=== PATIENT | male | born 1970 | race Caucasian/White ===

== ENCOUNTER 2022-05-25 18:03 | Emergency (ER) | payer OTHER, SELFPAY ==
--- OUTSIDE RECORDS SUMMARY | 2022-05-25 18:06 | XMS REPORT | Continuity of Care Document ---
:1970 Author Organization [facility] t Address [address] [place] [address] Care Team Providers Name Role Phone Unavailable Unavailable Unavailable Payers Payer Name Policy Type Policy Number Effective Date Expiration Date S richard COVID VACCINE [id number] 2020-10-20 00:00:00 ADMIN / TESTING Problems This patient has no known problems. Allergies, Adverse Reactions, Alerts This patient has no known allergies or adverse reactions. Social History Social Habit Start Date Stop Date Quantity Comments Source Sex Assigned At [address] [facility] 00:00:00 00:00:00 [facility] Medications This patient has no known medications. Immunizations Ordered Immunization Filled Immunization Date Status Commen ts Source Name Name Covid-19 Vaccine 2020-11-[address] [facility] MRNA (PF) 12yr+ 00:00:00 Medical C enter (Pfizer/BioNTech)(IM M601) Covid-19 Vaccine 2020-10-[address] [facility] MRNA (PF) 12yr+ 00:00:00 Medical C enter (Pfizer/BioNTech)(IM M601) Procedures This patient has no known procedures. Plan of Care Planned Activity Planned Date Details Comments Source Future Scheduled 2022-05-10 INFLUENZA VACCINE (#1) [facility] 00:00:00 [code = INFLUENZA Medical Ce nter VACCINE (#1)] Future Scheduled 2021-09-[address] [facility] 00:00:00 (12+) [code = [facility] DEPRESSION SCREENING (12+)] Future Scheduled 2021-04-12 COVID-19 VACCINE (3 - [facility] 00:[facility]:00 Booster for Pfizer Medical C enter series) [code = COVID-19 VACCINE (3 - Booster for Pfizer series)] Future Scheduled 2020 SHINGLES VACCINES ([address] [facility] 00:00:00 2) [code = SHINGLES Medical Center VACCINES (1 of 2)] Future Scheduled 2005 Lipid panel (procedure) [facility] 00:00:00 [code = 52171977] Medical Ce nter Future Scheduled 1989 DTAP/TDAP/TD VACCINES [facility] 00:00:00 (1 - Tdap) [code = Medical C enter DTAP/TDAP/TD VACCINES (1 - Tdap)] Future Scheduled 1988 HEPATITIS C SCREENING [facility] 00:00:00 [code = HEPATITIS C Medical Center SCREENING] Future Scheduled 1970 CT Colonography (combo) [facility] 00:00:00 [code = CT Colonography [facility] (combo)] Future Scheduled 1970 Screening for malignant [facility] 00:00:00 neoplasm of colon Medical Ce nter (procedure) [code = 634936586] Future Scheduled 1970 Screening for malignant [facility] 00:00:00 neoplasm of colon Medical Ce [facility]ter (procedure) [code = 619600934] Future Scheduled 1970 Screening for malignant [facility] 00:00:00 neoplasm of colon Medical Ce [facility]ter (procedure) [code = [id number]] Future Scheduled 1970 Screening for malignant [facility] 00:00:00 neoplasm of colon Medical Ce nter (procedure) [code = 440257852] Future Scheduled 1970 Sigmoidoscopy [code = [facility] 00:[facility] Sigmoidoscopy] Medical Cente r Encounters Start End Encounter Admission Attending Care Care Encounter Source Date/Time Date/Time Type Type Clinicians Facility Department ID 2020-11-10 2020-11-10 Outpatient [facility] [id number] 00:00:00 00:00:00 2020-11-09 2020-11-09 Outpatient [facility] [id number] [id number] 00:00:00 00:00:00 2020-10-20 2020-10-20 Outpatient [facility] [id number] [address] [place] [address] 00:00:00 00:00:00 Results This patient has no known results.
--- NOTE | 2022-05-25 19:16 | RAD REPORT ---
EXAM DESCRIPTION: RAD - Foot Right 3 View - 05/25/2022 7:02 pm CLINICAL HISTORY: puncture wound COMPARISON: No comparisons FINDINGS/IMPRESSION: No acute fracture. No malalignment. No significant focal degenerative changes. Swelling along the dorsum of the foot. No radiopaque foreign body.
[2022-05-25] MEDS ORDERED: IBUPROFEN 400 MG TAB ONE (19:53)
[2022-05-25] MEDS ORDERED: HYDROCODONE/APAP 10/325 TAB ONE (19:53)
[2022-05-25] MEDS ORDERED: DOXYCYCLINE 100 MG CAP PO ONE (19:54)
--- NOTE | 2022-05-25 19:56 | ER ---
Nurse's Notes [facility] Name: Mark Streeter Age: 52 yrs Sex: Male : 1970 Arrival Date: 05/25/2022 Time: 18:07 Bed 24 Private MD: Diagnosis: Puncture wound without foreign body, right foot Presentation: 05/25 18:10 Chief complaint: Patient [place] and he had a catfish poke him kr3 in the top of the right foot. Coronavirus screen: Vaccine status: Patient reports receiving the 2nd dose of the covid vaccine. Client denies travel out of the [place] in the last 14 days. Ebola Screen: Patient denies travel to an Ebola-affected area in the 21 days before illness onset. Initial Sepsis Screen: Does the patient meet any 2 criteria? No. Patient's initial sepsis screen is negative. Does the patient have a suspected source of infection? Yes: Skin breakdown/wound. Risk Assessment: Do you want to hurt yourself or someone else? Patient reports no desire to harm self or others. Onset of symptoms was May 25, 2022. 18:10 Method Of Arrival: Ambulatory kr3 18:10 Acuity: LEOBARDO 4 kr3 Triage Assessment: 18:15 General: Appears in no apparent distress. uncomfortable, Behavior is calm, cooperative, kr3 appropriate for age. Pain: Complains of pain in dorsum of right foot. Musculoskeletal: wound on top of foot. Injury Description: Puncture sustained to dorsum of right foot. Historical: - Allergies: 18:14 No Known Allergies; kr3 - PMHx: 18:14 Hypertensive disorder; kr3 - Social history:: Smoking status: Patient denies any tobacco usage or history of. Screenin:50 Abuse screen: Denies threats or abuse. Denies injuries from another. Nutritional tw5 screening: No deficits noted. Tuberculosis screening: No symptoms or risk factors identified. Fall Risk None identified. Assessment: 19:50 General: Appears in no apparent distress. Behavior is calm, cooperative, appropriate tw5 for age. Neuro: Level of Consciousness is awake, alert, obeys commands, Oriented to person, place, time, situation. Respiratory: Airway is patent Trachea midline Respiratory effort is even, unlabored. Derm: puncture wound on top of foot. Musculoskeletal: Range of motion: intact in all extremities. Vital Signs: 18:10 BP 131 / 81; Pulse 99; Resp 18; Temp 98.5; Pulse Ox 99% on R/A; Weight 108.86 kg; kr3 Height 6 ft. 2 in. (187.96 cm); Pain 4/10; 18:10 Body Mass Index 30.81 (108.86 kg, 187.96 cm) kr3 ED Course: 18:07 Patient arrived in ED. mr 18:14 Triage completed. kr3 18:16 Arm band placed on right wrist. kr3 18:21 Nima Meléndez PA is PHCP. cp 18:21 Walter Cleary MD is Attending Physician. cp 19:04 XRAY Foot RIGHT 3 View In Process Unspecified. EDSC 19:23 Anita Navas is Primary Nurse. tw5 19:50 Patient has correct armband on for positive identification. tw5 19:50 No provider procedures requiring assistance completed. Patient did not have IV access tw5 during this emergency room visit. 19:55 Awaiting lab results. tw5 19:55 Wound care: to puncture located on dorsum of left foot was cleaned with soap and water, tw5 dressed with Neosporin, 4X4s. Administered Medications: 19:50 Drug: Ibuprofen 800 mg Route: PO; tw5 19:56 Follow up: Response: No adverse reaction tw5 19:50 Drug: Doxycycline 200 mg Route: PO; tw5 19:56 Follow up: Response: No adverse reaction tw5 19:50 Drug: Clindamycin 300 mg Route: PO; tw5 19:56 Follow up: Response: No adverse reaction tw5 19:51 Not Given (Patient Refused; patient has to drive homee): HYDROcodone-acetaminophen 10 tw5 mg-325 mg 1 tabs PO once Medication: 19:50 VIS not applicable for this client. tw5 Outcome: 19:56 Discharge ordered by MD. cp 20:04 Discharged to home ambulatory. tw5 20:04 Condition: improved 20:04 Discharge instructions given to patient, family, Instructed on discharge instructions, follow up and referral plans. medication usage, Demonstrated understanding of instructions, follow-up care, medications, Prescriptions given X 3. 20:04 Patient left the ED. tw5 Signatures: Dispatcher [employer] [facility] Matthew Hayley mr Page, NimaREINA mckenna cp, Tiffany tw5 Racquel Bhatia, RN RN kr3
--- NOTE | 2022-05-25 19:56 | EDPHYS ---
Physician Documentation [facility] Name: Mark Streeter Age: 52 yrs Sex: Male : 1970 Arrival Date: 05/25/2022 Time: 18:07 Bed 24 Private MD: ED Physician Walter Cleary HPI: 05/25 18:45 This 52 yrs old Male presents to ER via Ambulatory with complaints of Foot Injury. cp 18:45 The patient presents with an injury, pain, that is acute, a penetrating injury, forrest of cp catfish. The complaints affect the dorsum of right foot. Context: The problem was sustained outdoors, while fishing, the patient can fully bear weight. Onset: The symptoms/episode began/occurred just prior to arrival. Associated signs and symptoms: The patient has no apparent associated signs or symptoms. Historical: - Allergies: 18:14 No Known Allergies; kr3 - PMHx: 18:14 Hypertensive disorder; kr3 - Social history:: Smoking status: Patient denies any tobacco usage or history of. ROS: 18:50 Constitutional: Negative for body aches, chills, fever, poor PO intake. cp 18:50 MS/extremity: Positive for pain, puncture, of the dorsum of right foot. cp 18:50 Respiratory: Negative for cough, shortness of breath, wheezing. cp 18:50 Eyes: Negative for injury, pain, redness, and discharge. cp 18:50 Neck: Negative for pain with movement, pain at rest. 18:50 Cardiovascular: Negative for chest pain, edema, palpitations. 18:50 Back: Negative for pain at rest, pain with movement. 18:50 All other systems are negative. Exam: 18:55 Constitutional: The patient appears in no acute distress, alert, awake, non-toxic, well cp developed, well nourished, uncomfortable. 18:55 Head/Face: Normocephalic, atraumatic. cp 18:55 Chest/axilla: Inspection: normal. cp 18:55 Cardiovascular: Rate: normal, Rhythm: regular. 18:55 Respiratory: the patient does not display signs of respiratory distress, Respirations: normal, no use of accessory muscles, no retractions, labored breathing, is not present. 18:55 Musculoskeletal/extremity: Extremities: grossly normal except: noted in the dorsum of right foot: mild swelling noted with mild erythema and tenderness to palpation. superficial puncture wound noted mid right foot with no active bleeding, ROM: full active range of motion, in the right foot, the right foot Sensation intact. Tendon exam: specific tendon testing normal through active and passive range of motion 18:55 Neuro: Orientation: to person, place \T\ time. Mentation: is normal. cp Vital Signs: 18:10 BP 131 / 81; Pulse 99; Resp 18; Temp 98.5; Pulse Ox 99% on R/A; Weight 108.86 kg; kr3 Height 6 ft. 2 in. (187.96 cm); Pain 4/10; 18:10 Body Mass Index 30.81 (108.86 kg, 187.96 cm) kr3 MDM: 19:16 Patient medically screened. cp 19:30 Differential diagnosis: open fracture, puncture wound, retained foreign body. cp 19:55 Data reviewed: vital signs, nurses notes, radiologic studies, plain films. cp 19:55 Test interpretation: by ED physician or midlevel provider: plain radiologic studies. cp Counseling: I had a detailed discussion with the patient and/or guardian regarding: the historical points, exam findings, and any diagnostic results supporting the discharge/admit diagnosis, radiology results, the need for outpatient follow up, a family practitioner, to return to the emergency department if symptoms worsen or persist or if there are any questions or concerns that arise at home. Response to treatment: the patient's symptoms have mildly improved after treatment. Special discussion: I discussed in detail with the patient the higher chance of wound infection based on his presenting history. ED course: VSS. Wound cleaned and irrigated. Wound dressed. Oral antibiotics given in ED. Will discharge to home for continued monitoring. Patient instructed on wound care and to closely monitor for worsening redness and swelling. 05/25 18:31 Order name: XRAY Foot RIGHT 3 View; Complete Time: 19:23 cp 05/25 19:40 Order name: Wound Care; Complete Time: 19:55 cp Administered Medications: 19:50 Drug: Ibuprofen 800 mg Route: PO; tw5 19:56 Follow up: Response: No adverse reaction tw5 19:50 Drug: Doxycycline 200 mg Route: PO; tw5 19:56 Follow up: Response: No adverse reaction tw5 19:50 Drug: Clindamycin 300 mg Route: PO; tw5 19:56 Follow up: Response: No adverse reaction tw5 19:51 Not Given (Patient Refused; patient has to drive homee): HYDROcodone-acetaminophen 10 tw5 mg-325 mg 1 tabs PO once Disposition Summary: 05/25/22 19:56 Discharge Ordered Location: Home cp Problem: new cp Symptoms: have improved cp Condition: Stable cp Diagnosis - Puncture wound without foreign body, right foot cp Followup: cp - With: Private Physician - When: 1 - 2 days - Reason: Wound Recheck Discharge Instructions: - Discharge Summary Sheet cp - Puncture Wound cp Forms: - Medication Reconciliation Form cp - Thank You Letter cp - Antibiotic Education cp - Prescription Opioid Use cp Prescriptions: - Clindamycin HCl 300 mg Oral Capsule - take 1 capsule by ORAL route every 6 hours for 10 days; 40 capsule; Refills: 0, cp Product Selection Permitted - Doxycycline Hyclate 100 mg Oral Tablet - take 1 tablet by ORAL route every 12 hours; 20 tablet; Refills: 0, Product cp Selection Permitted - Diclofenac Sodium 75 mg Oral Tablet Sustained Release - take 1 tablet by ORAL route 2 times per day; 30 tablet; Refills: 0, Product cp Selection Permitted Signatures: Dispatcher [employer] EDMS Nima Meléndez PA PA cp Wood, Tiffany tw5 Racquel Bhatia RN RN kr3
[2022-05-27 03:36] VITALS: BP 131/81; TEMP 98.5; O2SAT 99
== END 2022-05-25 20:04 | disposition home or self-care (01) ==
LOC: ER 18:03
DX: S91.331A Puncture wound without foreign body, right foot, initial encounter (principal); I10 Essential (primary) hypertension
CPT/HCPCS: 99284